=== PATIENT | female | born 1995 | race Caucasian/White ===

== ENCOUNTER 2020-08-07 02:43 | Emergency (ER) | payer BC, SELFPAY ==
--- NOTE | ~2020-08-07 | CT_ITS ---
EXAMINATION: CT abdomen pelvis w con INDICATION: Right lower quadrant pain TECHNIQUE: Computed tomographic images of the abdomen and pelvis were obtained after the administrati on of 100 cc of Omnipaque 350 intravenous contrast. The dose-length product (DLP) was 509.46 mGy-cm. Automated exposure control and iterative reconstruction technique were employed. COMPARISON: None available FINDINGS: Minimal dependent atelectasis is present in the lung bases. The heart size is normal. The g allbladder is surgically absent. The liver, spleen, pancreas, and adrenal glands are normal. There is a 4 mm stone of the distal right ureter which causes moderate right hydroureteronephrosis. There is a 2.9 x 0.7 cm staghorn calculus in the right renal pelvis. There is urothelial enhancement of the ri ght renal pelvis and right ureter with surrounding fat stranding. Nonobstructing stones in the right kidney lower pole measure up to 4 mm. Nonobstructing stones in the left kidney lower pole measure up to 2 mm. There is no free intraperitoneal gas or evidence of bowel obstruction. No pathologically en larged abdominal or pelvic lymph nodes are identified. IMPRESSION: 1. 4 mm stone of the distal right ureter causing moderate right hydroureteronephrosis. Urothelial enh ancement on the right suggest superimposed urinary tract infection. 2. Staghorn calculus of the right renal pelvis. 3. Nonobstructing bilateral nephrolithiasis. Reviewed, dictated and finalized at location A. GEMENT PROFESSOR IMPRESSION: 1. 4 mm stone of the distal right ureter causing moderate right hydroureteronep hrosis. Urothelial enhancement on the right suggest superimposed urinary tract infection. 2. Staghorn calculus of the right renal pelvis. 3. Nonobstructing bilateral nephrolithiasis.
[2020-08-07 02:49] VITALS: BP 140/87; PULSE 65; RESP 18; TEMP 35.8; O2SAT 100
--- NOTE | 2020-08-07 03:05 | ED.GENADULT ---
HPI - General Adult General Chief complaint: Abdominal Pain Stated complaint: rlq pain, n/v Time Seen by Provider: 08/07/20 02:54 History of Present Illness HPI narrative: Patient is a 25-year-old female who presents to the emergency department with a chief complaint of abdominal pain. Patient reports the pain started in the umbilical area and radiated to the right lower quadrant. Patient reports has been having some nausea and vomiting reports that the pain is worsened with palpation and improved with rest. Patient states that he had multiple episodes of nausea and vomiting reports that it is not improved by anything. The patient reports that she is due to have her period any day now. She reports that she is had prior history of cholecystectomy Related Data Home Medications Medication Instructions Recorded Confirmed estradiol 0 mcg VAGINAL PER PKG DIR 08/07/20 sertraline 50 mg PO DAILY 08/07/20 Allergies Allergy/AdvReac Type Severity Reaction Status Date / Time No Known Allergies Allergy Verified 08/07/20 02:48 Review of Systems Review of Systems: Narrative: A 10 system review of systems was completed on the patient and is negative except for what is stated in the HPI. Nursing and ancillary documentation was reviewed. [facility] Social History Social History Gender identity (if verbalized by the patient): Female Sexual Orientation (if Verbalized by the Patient): Straight or Heterosexual Comments Patient reports prior surgical history for cholecystectomy Denies illicit drug use Exam Narrative: Exam Narrative: GENERAL: Well-appearing, well-nourished, and in no acute distress. HEAD: Normocephalic, atraumatic. EYES: PERRLA and EOMI. ENT: Nares clear, no rhinorrhea or epistaxis. Mucous membranes moist. NECK: Supple. CHEST: Clear to auscultation. No respiratory distress. HEART: Regular rate and rhythm. No murmur heard. Normal peripheral pulses. ABDOMEN: Soft, tender to palpation in the right lower quadrant, nondistended, normal active bowel sounds. EXTREMITIES: Normal range of motion. No edema. SKIN: Warm, dry, no rash. NEURO: No focal deficits. Alert and oriented x3. PSYCH: Normal mood and affect. Course Course Emergency Course: Patient is feeling much better the patient's urinalysis showed evidence of 75 white blood cells in her urine concerning for infection CT scan showed evidence of a obstructing stone was 4 mm UVJ. The patient is feeling much better at this time she does also incidentally have a staghorn calculus in the right collecting system. The patient will be started on oral antibiotics and the patient will be given a prescription for pain medications and antiemetic and the patient will be instructed to follow-up with urology. Vital Signs Vital signs: Vital Signs Temperature 35.8 C L 08/07/20 02:49 Pulse Rate 65 08/07/20 02:49 Respiratory Rate 18 08/07/20 02:49 Blood Pressure 140/87 08/07/20 02:49 Pulse Oximetry 100 08/07/20 02:49 Temperature 35.8 C L 08/07/20 02:49 Pulse Rate 78 08/07/20 04:48 Respiratory Rate 14 08/07/20 04:48 Blood Pressure 138/72 08/07/20 04:48 Pulse Oximetry 99 08/07/20 04:48 Medical Decision Making Vital Signs Vital Signs: Vital Signs Temperature 35.8 C L 08/07/20 02:49 Pulse Rate 65 08/07/20 02:49 Respiratory Rate 18 08/07/20 02:49 Blood Pressure 140/87 08/07/20 02:49 Pulse Oximetry 100 08/07/20 02:49 Temperature 35.8 C L 08/07/20 02:49 Pulse Rate 78 08/07/20 04:48 Respiratory Rate 14 08/07/20 04:48 Blood Pressure 138/72 08/07/20 04:48 Pulse Oximetry 99 08/07/20 04:48 Lab Data Result diagrams: 08/07/20 03:21 08/07/20 03:39 Labs: Lab Results 08/07/20 08/07/20 08/07/20 Range/Units 03:21 03:21 03:25 WBC 12.4 H (4.5-10.0) K/mm3 RBC 4.96 (4.2-5.4) M/mm3 Hgb 13.7 (12.0-15.0) g/dL Hct 42.2 (37.0-47.0) % MCV 85.1 (80-100)
[2020-08-07] MEDS: ONDANSETRON INJ 4 MG/2 ML VIAL IV PUSH (03:28)
[2020-08-07] MEDS: MORPHINE SULFATE (*CRX) 4 MG/ML INJ IV PUSH (03:28)
[2020-08-07] MEDS: SODIUM CHLORIDE 0.9% IV 1,000 ML 999 ML IV CONT (03:29)
[2020-08-07 03:36] LABS: Basophils Absolute Auto 0.1 K/mm3 (0.0-0.1); Basophils Percent Auto 0.6 % (0.2-1.2); Eosinophils Absolute Auto 0.1 K/mm3 (0-0.3); Eosinophils Percent Auto 0.9 % (0-4.4); Hematocrit 42.2 % (37.0-47.0); Hemoglobin 13.7 g/dL (12.0-15.0); Immature Granulocyte Absolute 0.03 K/mm3 (0.00-0.031); Immature Granulocyte Percent A 0.2 % (0-0.5); Lymphocytes Absolute Auto 3.24 K/mm3 (0.9-3.2); Lymphocytes Percent Auto 26.1 % (18.3-44.2); Mean Corpuscular HGB Conc 32.5 g/dl (32-36); Mean Corpuscular Hemoglobin 27.6 pg (26-34); Mean Corpuscular Volume 85.1 fl (80-100); Monocytes Absolute Auto 1.2 K/mm3 (0.1-0.6); Monocytes Percent Auto 9.3 % (2.6-8.5); Neutrophils Absolute Auto 7.8 K/mm3 (1.3-6.7); Neutrophils Percent Auto 62.9 % (45.5-73.1); Red Blood Count 4.96 M/mm3 (4.2-5.4); Red Cell Distribution Width 13.1 % (11.5-14.5); White Blood Count 12.4 K/mm3 (4.5-10.0)
[2020-08-07 03:41] LABS: Estimated CRCL calculation 88 ml/min; Estimated Glomerular Filt Rate > 60
[2020-08-07 03:54] LABS: Lactic Acid Reflex 2.4 mmol/L (0.7-2.1)
[2020-08-07 03:56] LABS: Alanine Aminotransferase 18 U/L (4-35); Albumin Level 4.2 g/dL (3.5-5.1); Alkaline Phosphatase 102 U/L (38-126); Anion Gap 9 mmol/L (8-16); Aspartate Amino Transferase 27 U/L (14-36); Bilirubin,Total 0.6 mg/dL (0.2-1.3); Blood Urea Nitrogen 7 mg/dL (7-17); Calcium 11.8 mg/dL (8.4-10.2); Carbon Dioxide 24 mmol/L (22-30); Chloride 103 mmol/L (98-107); Estimated CRCL calculation 88 ml/min; Estimated Glomerular Filt Rate > 60; Glucose 95 mg/dL (65-105); Lipase 48 U/L (23-300); Potassium 3.5 mmol/L (3.4-5.0); Sodium 136 mmol/L (137-145)
[2020-08-07 04:00] LABS: Large Platelets Present; Platelet Clumps Present; Platelet Estimate Adequate (Adequate)
[2020-08-07 04:48] VITALS: BP 138/72; PULSE 78; RESP 14; O2SAT 99
[2020-08-07 04:54] LABS: Add Urine Microscopic? YES; Appearance Urine Cloudy (Clear); Bacteria Urine Trace /hpf; Bilirubin Urine Negative (Negative); Blood Urine 2+ (Negative); Color Urine Yellow (Yellow); Glucose Urine UA Negative (Negative); Ketones Urine Negative (Negative); Leukocyte Esterase Ur 3+ LEU/UL (Negative); Mucus Urine Rare /lpf; Nitrate Urine Negative (Negative); Protein Urine 2+ mg/dL (Negative); RBC Urine >75 /hpf (0-2); Specific Grav Ur 1.016 (1.001-1.035); Squamous Epithelial Cell Urine Occasional /hpf (Few); Urobilinogen Urine Negative mg/dL (<2.0); WBC Urine >75 /hpf
[2020-08-07] MEDS: KETOROLAC 30 MG/ML VIAL (*BKC) IV PUSH (05:21)
[2020-08-07 06:00] VITALS: BP 132/74; PULSE 68; RESP 12; O2SAT 99
[2020-08-07 06:34] LABS: Reflex Lactic Acid Yes or No Add Lactic
== END 2020-08-07 06:01 | disposition home or self-care (01) ==
PROVIDERS: Emergency Provider Emergency Medicine
DX: N20.0 Calculus of kidney (principal); N39.0 Urinary tract infection, site not specified
CPT/HCPCS: 36415; 74177; 80053; 81001; 81025; 83605; 83690; 85025; 87086; 96361; 96365; 96375; 99284; J0696; J1885; J2270; J2405; J7030; Q9967

== ENCOUNTER 2020-09-25 16:36 | Outpatient (CLI) | payer BC, SELFPAY ==
--- NOTE | ~2020-09-25 | XR_ITS ---
EXAMINATION: XR abdomen/kub 1V DATE: 09/25/2020 16:58 INDICATION: Right-sided abdominal pain with staghorn calculus and right-sided ureteral stent. TECHNIQUE: A supine view of the abdomen on 2 radiographs was obtained. COMPARISON: CT dated 08/07/2020 FINDINGS: Right internal ureteral stent with loops formed over the expected location of the bladder and right r enal pelvis. The prior large right renal pelvis staghorn calculus is no longer visualized suggesting interval lithotripsy. There are few residual small stone fragments project over the lower pole of the right kidney, the largest measuring approximately 5 x 1.5 mm. No stone fragments seen along the cour se of ureteral stent. Unchanged phleboliths in the right hemipelvis. 2 mm stone projects over the low er pole of the left kidney. Normal bowel gas pattern. Cholecystectomy clips in the right upper quadra nt. IMPRESSION: 1. Images suggesting interval right lithotripsy with a few residual small stone fragments at the lowe r pole of the right kidney. 2. 2 mm stone at the lower pole of the left kidney. 3. Right internal ureteral stent in expected position. Reviewed, dictated and finalized at location A. STANT PROFESSOR OF [employer]ATER IMPRESSION: 1. Images suggesting interval right lithotripsy with a few residual small stone fragments at the lower pole of the right kidney. 2. 2 mm stone at the lower pole of the left kidney. 3. Right internal ureteral stent in expected position.
== END 2020-09-25 16:37 | disposition home or self-care (01) ==
LOC: ANHIMG 16:44
PROVIDERS: PCP Emergency Medicine; Visit Provider Urology
DX: N20.0 Calculus of kidney (principal)
CPT/HCPCS: 74018

== ENCOUNTER 2020-11-13 13:19 | Outpatient (CLI) | payer BC, SELFPAY ==
--- NOTE | ~2020-11-13 | XR_ITS ---
EXAMINATION: XR abdomen/kub 1V EXAM DATE: 11/13/2020 13:37 INDICATION: Staghorn calculus. TECHNIQUE: Frontal projection(s) of the abdomen for interpretation. Comparison is made to prior exami nation from 09/25/2020. FINDINGS: Previously seen right double-J ureteral stent no longer identified. There is stool overlyin g both renal contours. No suspicious soft tissue calcifications identified. Calcifications in the pel vis are believed to be phleboliths. There are cholecystectomy clips. There is no organomegaly. No dil ated small bowel. There are no osseous abnormalities identified. IMPRESSION: Unremarkable XR abdomen/kub 1V exam. Reviewed, dictated and finalized at location A.
== END 2020-11-13 13:20 | disposition home or self-care (01) ==
LOC: ANHIMG 13:24
PROVIDERS: PCP Emergency Medicine; Visit Provider Urology
DX: N20.0 Calculus of kidney (principal)
CPT/HCPCS: 74018

== ENCOUNTER 2021-08-25 22:17 | Emergency (ER) | payer BC, SELFPAY ==
[2021-08-25 22:22] VITALS: BP 138/71; PULSE 63; RESP 16; TEMP 36.4; O2SAT 100
--- NOTE | 2021-08-25 23:56 | PC.NURSE ---
no answer when name called to room x 2.
== END 2021-08-25 23:58 | disposition left against medical advice (07) ==
LOC: ANHED 08-26 00:21
DX: M54.50 Low back pain, unspecified (principal)
CPT/HCPCS: 99199